=== PATIENT | male | born 1945 | race Caucasian/White ===

== ENCOUNTER 2017-12-26 09:29 | Emergency (ER) | payer MEDICARE, OTHER ==
[2017-12-26] MEDS ORDERED: methylPREDNISolone Acetate 40 MG/ML SDV IARTIC ONE (09:57)
--- NOTE | 2017-12-26 10:03 | EDM.PDOC ---
ED HPI GENERAL MEDICAL PROBLEM - General Chief Complaint: Upper Extremity Injury/Pain Stated Complaint: RT SHOULDER PAIN (ONGOING) Time Seen by Provider: 12/26/17 09:50 Source of Information: Reports: Patient History Limitations: Reports: No Limitations - History of Present Illness INITIAL COMMENTS - FREE TEXT/NARRATIVE: 72 yo male presents with an exacerbation of chronic R shoulder pain. Playing golf makes it worse. I leaving for home in about a week. Not getting much relief with ibuprofen alone. Onset: Gradual, Unknown/Unsure Duration: Chronic, Waxing/Waning Location: Reports: Upper Extremity, Right Quality: Reports: Ache Severity: Moderate Improves with: Reports: Medication, Rest Worsens with: Reports: Movement Context: Reports: Activity (golfs a lot) Associated Symptoms: Reports: No Other Symptoms Treatments AUDIO DIRECTOR: Reports: NSAIDS (ibuprofen) Right Shoulder Pain Score (Numeric/FACES): 4 - Related Data Allergies Allergy/AdvReac Type Severity Reaction Status Date / Time No Known Allergies Allergy Verified 12/26/17 09:56 Past Medical History HEENT History: Reports: Impaired Vision Musculoskeletal History: Reports: Other (See Below) Other Musculoskeletal History: shoulder seperation - Infectious Disease History Infectious Disease History: Reports: Chicken Pox, Measles, Mumps - Past Surgical History Musculoskeletal Surgical History: Reports: Knee Replacement Social & Family History - Tobacco Use Smoking Status *Q: Never Smoker - Caffeine Use Caffeine Use: Reports: Coffee - Recreational Drug Use Recreational Drug Use: No Review of Systems - Review of Systems Review Of Systems: See Below Constitutional: Reports: No Symptoms Eyes: Reports: No Symptoms Musculoskeletal: Reports: Shoulder Pain (Right) Skin: Reports: No Symptoms Neurological: Reports: No Symptoms ED EXAM, GENERAL - Physical Exam Exam: See Below Exam Limited By: No Limitations General Appearance: Alert, WD/WN, No Apparent Distress Extremities: Normal Inspection, Normal Range of Motion, No Pedal Edema, Other ( R A/C tenderness on palpation.). No: Non-Tender, Joint Swelling, Limited Range of Motion Neurological: Alert, Oriented, CN II-XII Intact, No Motor/Sensory Deficits Psychiatric: Normal Affect, Normal Mood Skin Exam: Warm, Dry, Intact, Normal Color, No Rash ED TRAUMA EXTREMITY PROCEDURES - Additional/Other Procedure(s) Other (Free Text) Procedure(s): Injected R A/C jt with 40 mg of depomedrol. Course - Vital Signs Last Recorded V/S: Last Vital Signs Temp 35.8 C 12/26/17 09:51 Pulse 63 12/26/17 09:51 Resp 16 12/26/17 09:51 BP 128/61 12/26/17 09:51 Pulse Ox 96 12/26/17 09:51 - Orders/Labs/Meds Orders: Active Orders 24 hr Category Date Time Status methylPREDNISolone acetate [Depo-Medrol] Med 12/26/17 09:57 Once 40 mg IARTIC ONETIME ONE Departure - Departure Time of Disposition: 10:15 Disposition: Home, Self-Care 01 Condition: Good Clinical Impression: Acromioclavicular joint arthritis Qualifiers: Laterality: right Qualified Code(s): M19.011 - Primary osteoarthritis, right shoulder - Discharge Information *PRESCRIPTION DRUG MONITORING PROGRAM REVIEWED*: No *COPY OF PRESCRIPTION DRUG MONITORING REPORT IN PATIENT ALLY: No Instructions: Arthritis, [id number] Referrals: PCP,None [Primary Care Provider] - Additional Instructions: Continue ibuprofen as before. No golfing for the next week. Take [place] as needed. Recheck with your provider upon return home. - My Orders Last 24 Hours: My Active Orders 12/26/17 09:57 methylPREDNISolone acetate [Depo-Medrol] 40 mg IARTIC ONETIME ONE - Assessment/Plan Last 24 Hours: My Active Orders 12/26/17 09:57 methylPREDNISolone acetate [Depo-Medrol] 40 mg IARTIC ONETIME ONE
== END 2017-12-26 10:15 | disposition home or self-care (01) ==
LOC: JP.ED 09:29
DX: M19.011 Primary osteoarthritis, right shoulder (principal)
CPT/HCPCS: 20610; 99283; J1030